=== PATIENT | male | born 1960 | race Caucasian/White ===

== ENCOUNTER 2018-10-28 09:58 | Outpatient (CLI) | payer MEDICARE ==
--- NOTE | 2018-10-28 15:14 | Magnetic Resonance Report ---
MRI BRAIN WITHOUT AND WITH CONTRAST INDICATION / CLINICAL INFORMATION: C83.38 DIFFUSE LARGE B CELL LYMPHOMA LYMPH NODES MULTIPLE SITE. TECHNIQUE: Multiplanar, multisequence MR images of the brain were obtained. COMPARISON: None available. FINDINGS: BRAIN / INTRACRANIAL CONTENTS: There is a leighton hole site in the left frontal calvarium. No acute isch emia, acute hemorrhage, mass effect, midline shift, or hydrocephalus. No abnormal intracranial enhan cement. There is moderate central volume loss with expected dilation of the lateral ventricles and pe riventricular white matter/FLAIR hyperintensity. CRANIOCERVICAL JUNCTION: No significant abnormality. VASCULAR FLOW-VOIDS: No significant abnormality. ORBITS: No significant abnormality of visualized orbits. SINUSES / MASTOIDS: No significant abnormality of visualized sinuses and mastoid air cells. ADDITIONAL FINDINGS: None. IMPRESSION: 1. No acute abnormality. No evidence of active intracranial lymphoma. 2. Prominent central brain parenchymal volume loss with exvacuodilatation of the lateral and third ve ntricles. Findings could be related to previous treated lymphoma or significant chronic microvascular angiopathic change. Signer Name: Sabino Messer MD Signed: 10/28/2018 3:09 PM Workstation Name: [id number]
== END 2018-10-28 09:59 | disposition home or self-care (01) ==
LOC: MRI 09:58
DX: C83.38 Diffuse large B-cell lymphoma, lymph nodes of multiple sites (principal)
CPT/HCPCS: 70553; A9577

== ENCOUNTER 2020-05-11 09:11 | Outpatient (CLI) | payer MEDICARE ==
--- NOTE | 2020-05-11 12:23 | Magnetic Resonance Report ---
MRI BRAIN 05/11/2020 INDICATION / CLINICAL INFORMATION: MAIN. DIFFUSE LARGE B-CELL LYMPHOMA, FOLLOW-UP TECHNIQUE: Multiplanar, multisequence MR images of the brain were obtained. COMPARISON: 10/27/2019 FINDINGS: BRAIN / INTRACRANIAL CONTENTS: Unenhanced and enhanced MR images of the brain demonstrate no evidence of acute abnormality. Ventricles and sulci are prominent in size, consistent with prominent diffuse cerebral atrophy. Chron ic white matter T2 weighted hyperintensity is present in the periventricular white matter cerebral he mispheres. There is no evidence of acute ischemic injury, hemorrhage, or mass. There are no abnormal extra-axial fluid collections. Postcontrast images demonstrate no abnormal contrast enhancement. EXTRACRANIAL: Unremarkable CRANIOCERVICAL JUNCTION: No significant abnormality. VASCULAR FLOW-VOIDS: No significant abnormality. IMPRESSION: No evidence of abnormal mass or enhancement. Prominent diffuse cerebral atrophy. Overall, no significant change when compared to 10/27/2019. Signer Name: Km Benitez MD Signed: 05/11/2020 12:19 PM Workstation Name: [id number]
== END 2020-05-11 09:12 | disposition home or self-care (01) ==
LOC: MRI 09:11
PROVIDERS: ATTEND Internal Medicine Hematology & Oncology
DX: C83.38 Diffuse large B-cell lymphoma, lymph nodes of multiple sites (principal); G31.9 Degenerative disease of nervous system, unspecified
CPT/HCPCS: 70553; A9575

== ENCOUNTER 2021-05-16 07:33 | Outpatient (CLI) | payer MEDICARE ==
--- NOTE | 2021-05-16 09:53 | Magnetic Resonance Report ---
MR BRAIN WO/W CON INDICATION / CLINICAL INFORMATION: 60 years Male; C83.38. Diffuse large B-cell lymphoma follow-up TECHNIQUE: Multiplanar, multisequence MR images of the brain were obtained. Postcontrast images in all 3 planes following 18 cc of Clariscan intravenously. COMPARISON: 05/11/2020 FINDINGS: BRAIN / INTRACRANIAL CONTENTS: Moderate cerebral atrophy is again noted and unchanged. There are scattered areas of increased signal intensity on FLAIR imaging in the white matter of the c erebral hemispheres. These are nonspecific findings and may be related to microangiopathy (hypertensi on, diabetes, atherosclerosis), given the patient's age. Chronic lacunar infarct in the left basal g anglia is unchanged. No large chronic infarct. Ventricles remain prominent but symmetric which is unchanged likely representing central volume loss. Otherwise, no acute ischemia, acute hemorrhage, or hydrocephalus. No mass or abnormal enhancement is identified. CRANIOCERVICAL JUNCTION: No significant abnormality. VASCULAR FLOW-VOIDS: No significant abnormality. ORBITS: No significant abnormality of visualized orbits. SINUSES / MASTOIDS: No significant abnormality in the visualized paranasal sinuses or mastoid air ale ls. ADDITIONAL FINDINGS: None. IMPRESSION: Stable findings since 05/11/2020. No evidence for disease recurrence or metastasis. Stable volume loss and chronic white matter changes. Chronic lacunar infarct in the left basal ganglia, unchanged. Signer Name: Tien Wang Jr, MD Signed: 05/16/2021 9:48 AM Workstation Name: [id number]
== END 2021-05-16 07:34 | disposition home or self-care (01) ==
LOC: MRI 07:33
PROVIDERS: ATTEND Internal Medicine Hematology & Oncology
DX: C83.38 Diffuse large B-cell lymphoma, lymph nodes of multiple sites (principal); G31.9 Degenerative disease of nervous system, unspecified; R90.82 White matter disease, unspecified
CPT/HCPCS: 70553; A9575